=== PATIENT | male | born 1990 | race Caucasian/White ===

== ENCOUNTER 2016-09-03 15:59 | Emergency (ER) | payer OTHER ==
[~2016-09-03] VITALS: Ht 172.7 cm; Wt 93.3 kg
[~2016-09-03 15:59] MED LIST: IBUP-103 PO; SULF800T23 PO
[2016-09-03 16:06] VITALS: Ht 172.7 cm; Wt 93.3 kg
[2016-09-03] MEDS ORDERED: XYLOCAINE 1%/SOD BICARB 20 ML VIAL INFIL ONE (16:45)
[2016-09-03] MEDS ORDERED: CEPH500C2 PO (17:10)
--- NOTE | 2016-09-03 17:10 | EMERGENCY ROOM VISIT NOTE ---
ED Visit Note First contact with patient: 16:25 CHIEF COMPLAINT: Left third finger laceration at work HISTORY OF PRESENT ILLNESS: Patient is a [id number] 25-year-old white male who presents emergency department for evaluation of a laceration to the left third finger that he sustained at work just prior to arrival. 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 The bleeding has stopped. Denies weakness or numbness of the finger. REVIEW OF SYSTEMS: Review of systems as per HPI. All other systems reviewed were negative. At least 6 systems reviewed. PMH: Electronic medical records are reviewed and summarized as above/below. See Problem List. Tetanus is up-to-date. SOCIAL HISTORY: Patient lives at home. Non-smoker, occasional alcohol use. PHYSICAL EXAM: Vital Signs: Reviewed Nurse's notes. There is a 2.5 cm long laceration on the ulnar aspect of the left third fingertip, adjacent to the nail. The edges gape apart with traction. There is no foreign material in the wound and it looks clean. There is no bleeding. No deep structures such as tendons or nerves are seen in the base of the wound. Extension and flexion of the finger is full and strong. Capillary refills less than 2 seconds. EMERGENCY DEPARTMENT COURSE: Using sterile technique, saline and Betadine cleansing, and 1% lidocaine anesthesia, the laceration was repaired with 7, 5-0 nylon sutures. Patient tolerated the procedure well. Bacitracin and a light bandage were applied. Wound care measures were discussed. I do not suspect fracture, foreign body, ligamentous or tendinous injury. Problem List Medical Problems: (1) Abscess Status: Resolved (2) Cellulitis of groin, right Status: Resolved (3) Groin pain Status: Resolved (4) MRSA (methicillin resistant Staphylococcus aureus) Status: Chronic (5) No significant past medical history Status: Chronic Surgical Problems: (1) No significant past surgical history Status: Chronic Current/Historical Medications Scheduled Cephalexin Monohydrate (Keflex), 500 MG PO TID Allergies Coded Allergies: No Known Allergies (Unverified , 09/03/16) Vital Signs Date Time Temp Pulse Resp B/P Pulse Ox O2 Delivery O2 Flow Rate FiO2 09/03/16 17:46 36.8 87 18 145/80 97 09/03/16 16:06 36.8 87 18 145/80 97 Room Air Departure Information Impression Primary Impression: Finger laceration Additional Impression: Work related injury Prescriptions Cephalexin Monohydrate (KEFLEX) 500 Mg Cap 500 MG PO TID, #15 CAP Prov: Dasia Shrestha PA 09/03/16 Referrals No Doctor, Assigned (PCP) Patient Instructions [facility] Additional Instructions Keep wound clean and dry. Do not allow any crusting or dried blood to accumulate on sutures. If this occurs, use a 1:1 solution of hydrogen peroxide/ water on a Q-tip to clean the wound. Use an antibiotic ointment for 3-4 days, then let wound dry. Suture removal in 10-12 days. Return sooner for any signs of infection (increasing redness, swelling, drainage). Ice and elevate for swelling and pain. Ibuprofen 600 mg and Tylenol 1000 mg every 6 hrs for pain. Cephalexin(Keflex) 500mg: Take one pill 3 times daily for 5 days to prevent infection. All antibiotics can cause diarrhea. If this occurs and you feel worse or it does not resolve in 1-2 days follow up with your doctor or return to the Emergency Department as this could be signs of serious underlying problems. Any medication can cause an allergic reaction, stop the pills immediately and return to the ER for rash, hives, breathing difficulties, or swelling. Problem Qualifiers Primary Impression: Finger laceration Encounter type: initial encounter Qualified Codes: S61.219A - Laceration without foreign body of unspecified finger without damage to nail, initial encounter
[2016-09-03 17:46] VITALS: BP 145/80; PULSE 87; TEMP 36.8; O2SAT 97
== END 2016-09-03 17:47 | disposition home or self-care (01) ==
LOC: C.EDB 16:00 → C.EDD 17:47
DX: S61.213A Laceration without foreign body of left middle finger without damage to nail, initial encounter (principal); W45.8XXA Other foreign body or object entering through skin, initial encounter; Y92.89 Other specified places as the place of occurrence of the external cause; Y99.0 Civilian activity done for income or pay; Z86.14 Personal history of Methicillin resistant Staphylococcus aureus infection